=== PATIENT | male | born 1985 | race Caucasian/White ===

== ENCOUNTER 2017-06-19 11:18 | Emergency (ER) | payer SELFPAY ==
[2017-06-19 11:40] VITALS: BP 146/88
--- NOTE | 2017-06-19 12:39 | ER Document Report ---
ED General - General Chief Complaint: Anxiety Stated Complaint: HEART PROBLEMS Time Seen by Provider: 06/19/17 12:15 Mode of Arrival: Ambulatory Information source: Patient Notes: Patient states he has been very stressed lately and today when he took his pulse was in the 130s and his blood pressure is elevated. He states he felt like his heart was beating out of his chest that he was very concerned. Patient states he went to make sure he was not having a heart attack. Patient states the palpitations were constant. They did not radiate. Nothing made them better or worse other than the above stress did make them worse. Patient denies any previous history of cardiac disease. No chronic medical problems. He denies any drug or alcohol use. He did state he used marijuana but that was approximately 72 hours ago. He denies any type of energy drinks. He does smoke daily. Patient states he does not wish to have any lab work done as this will cause him to have increased bills and he currently does not have sufficient funds. TRAVEL OUTSIDE OF THE [place] IN LAST 30 DAYS: No - Related Data Allergies/Adverse Reactions: No Known Allergies Allergy (Verified 06/19/17 11:35) Past Medical History - General Information source: Patient - Social History Smoking Status: Current Every Day Smoker Chew tobacco use (# tins/day): Yes Frequency of alcohol use: Occasional Drug Abuse: Marijuana Family History: Reviewed & Not Pertinent Patient has suicidal ideation: No Patient has homicidal ideation: No Renal/ Medical History: Denies: Hx Peritoneal Dialysis GI Medical History: Reports: Hx Gastroesophageal Reflux Disease Surgical Hx: Negative - Immunizations Immunizations up to date: Yes Hx Diphtheria, Pertussis, Tetanus Vaccination: Yes Review of Systems - Review of Systems Constitutional: denies: Fever Cardiovascular: Chest pain, Palpitations Respiratory: Short of breath. denies: Cough Neurological/Psychological: Anxiety Physical Exam - Vital signs Vitals: Temp Pulse Resp BP Pulse Ox 98.0 F 87 18 146/88 H 98 06/19/17 11:37 06/19/17 11:37 06/19/17 11:37 06/19/17 11:37 06/19/17 11:37 Interpretation: Hypertensive - General General appearance: Appears well, Alert - HEENT Head: Normocephalic, Atraumatic Eyes: Normal Pupils: PERRL - Respiratory Respiratory status: No respiratory distress Chest status: Nontender Breath sounds: Normal Chest palpation: Normal - Cardiovascular Rhythm: Regular Heart sounds: Normal auscultation Murmur: No - Abdominal Inspection: Normal Distension: No distension Bowel sounds: Normal Tenderness: Nontender Organomegaly: No organomegaly - Back Back: Normal, Nontender - Extremities General upper extremity: Normal inspection, Nontender, Normal color, Normal ROM , Normal temperature General lower extremity: Normal inspection, Nontender, Normal color, Normal ROM , Normal temperature, Normal weight bearing. No: Batsheva's sign - Neurological Neuro grossly intact: Yes Cognition: Normal Orientation: AAOx4 [place] Coma Scale Eye Opening: Spontaneous [place] Coma Scale Verbal: Oriented [place] Coma Scale Motor: Obeys Commands [place] Coma Scale Total: 15 Speech: Normal Motor strength normal: LUE, RUE, LLE, RLE Sensory: Normal - Psychological Associated symptoms: Anxious, Restlessness - Skin Skin Temperature: Warm Skin Moisture: Dry Skin Color: Normal Course - Vital Signs Vital signs: Temp Pulse Resp BP Pulse Ox 98.0 F 87 18 146/88 H 98 06/19/17 11:37 06/19/17 11:37 06/19/17 11:37 06/19/17 11:37 06/19/17 11:37 - EKG Interpretation by Ia EKG shows normal: Sinus rhythm Rate: Normal Rhythm: NSR [place]/QRS: No: Right axis deviation, Left axis deviation Discharge - Discharge Clinical Impression: Acute anxiety Condition: Stable Disposition: HOME, SELF-CARE Instructions: Anxiety ([facility]) Additional Instructions: Please follow-up with your primary care physician as soon as possible. Please avoid stimulants such as caffeine tobacco and energy drinks Your blood pressure is elevated today. Please have this rechecked within 1 week by your physician. Forms: Elevated Blood Pressure, Return to Work Referrals: LUBA PEREZ MD [COMMUNITY BASED STAFF] - Follow up as needed
--- NOTE | 2017-06-19 15:28 | EKG REPORT ---
SEVERITY:- NORMAL ECG - SINUS RHYTHM : Confirmed by: Julius Davenport 19-Jun-2017 15:27:29
== END 2017-06-19 13:11 | disposition home or self-care (01) ==
LOC: ER 11:18
DX: F41.9 Anxiety disorder, unspecified (principal); R07.9 Chest pain, unspecified; R00.2 Palpitations; F17.210 Nicotine dependence, cigarettes, uncomplicated
CPT/HCPCS: 93005; 93010; 99283

== ENCOUNTER 2017-10-21 11:45 | Emergency (ER) | payer MEDICAID, OTHER ==
[2017-10-21 12:02] VITALS: BP 134/79
--- NOTE | 2017-10-21 12:26 | ER Document Report ---
ED General - General Chief Complaint: Ear Pain Stated Complaint: EAR PAIN Time Seen by Provider: 10/21/17 12:10 Mode of Arrival: Ambulatory Information source: Patient Notes: 32-year-old male presents with complaints of earache bilateral. Patient notes he has had otitis externa 10 years prior notes that there is swelling of his ear canal. Patient denies any fevers or chills TRAVEL OUTSIDE OF THE [place] IN LAST 30 DAYS: No - HPI Onset: Other Onset/Duration: Persistent, Worse Quality of pain: Achy Severity: Mild Pain Level: 1 Associated symptoms: Earache Exacerbated by: Denies Relieved by: Denies Similar symptoms previously: Yes Recently seen / treated by doctor: No - Related Data Allergies/Adverse Reactions: nickel Allergy (Verified 10/21/17 11:47) Past Medical History - Social History Smoking Status: Never Smoker Cigarette use (# per day): No Chew tobacco use (# tins/day): No Smoking Education Provided: No Family History: Reviewed & Not Pertinent Renal/ Medical History: Denies: Hx Peritoneal Dialysis GI Medical History: Reports: Hx Gastroesophageal Reflux Disease - Immunizations Immunizations up to date: Yes Hx Diphtheria, Pertussis, Tetanus Vaccination: Yes Review of Systems - Review of Systems Notes: REVIEW OF SYSTEMS: CONSTITUTIONAL : Denies fever, chills, or sweats. Denies recent illness. EENT: bilateral ear ache CARDIOVASCULAR: Denies chest pain. Denies palpitations or racing or irregular heart beat. Denies ankle edema. RESPIRATORY: Denies cough, cold, or chest congestion. Denies shortness of breath, difficulty breathing, or wheezing. GASTROINTESTINAL: Denies abdominal pain or distention. Denies nausea, vomiting , or diarrhea. Denies blood in vomitus, stools, or per rectum. Denies black, tarry stools. Denies constipation. GENITOURINARY: Denies difficulty urinating, painful urination, burning, frequency, blood in urine, or discharge. MUSCULOSKELETAL: Denies back or neck pain or stiffness. Denies joint pain or swelling. SKIN: Denies rash, lesions or sores. HEMATOLOGIC : Denies easy bruising or bleeding. LYMPHATIC: Denies swollen, enlarged glands. NEUROLOGICAL: Denies confusion or altered mental status. Denies passing out or loss of consciousness. Denies dizziness or lightheadedness. Denies headache. Denies weakness or paralysis or loss of use of either side. Denies problems with gait or speech. Denies sensory loss, numbness, or tingling. Denies seizures. PSYCHIATRIC: Denies anxiety or stress. Denies depression, suicidal ideation, or homicidal ideation. ALL OTHER SYSTEMS REVIEWED AND NEGATIVE. Dictation was performed using [employer] recognition software PHYSICAL EXAMINATION: GENERAL: Well-appearing, well-nourished and in no acute distress. HEAD: Atraumatic, normocephalic. EYES: Pupils equal round and reactive to light, extraocular movements intact, sclera anicteric, conjunctiva are normal. ENT: Nares patent, oropharynx clear without exudates. Moist mucous membranes. Left TM is pustular canal is patent, right TM is erythematous pustular there is discharge noted there is swelling of the canal no mastoid tenderness on either side NECK: Normal range of motion, supple without lymphadenopathy LUNGS: Breath sounds clear to auscultation bilaterally and equal. No wheezes rales or rhonchi. HEART: Regular rate and rhythm without murmurs ABDOMEN: Soft, nontender, nondistended abdomen. No guarding, no rebound. No masses appreciated. Musculoskeletal: Normal range of motion, no pitting or edema. No cyanosis. NEUROLOGICAL: Cranial nerves grossly intact. Normal speech, normal gait. Normal sensory, motor exams PSYCH: Normal mood, normal affect. SKIN: Warm, Dry, normal turgor, no rashes or lesions noted. Physical Exam - Vital signs Vitals: Temp Pulse BP Pulse Ox 98.7 F 103 H 134/79 H 97 10/21/17 12:01 10/21/17 12:01 10/21/17 12:01 10/21/17 12:01 Course - Re-evaluation Re-evalutation: 10/21/17 12:32 Patient has obvious otitis media and otitis externa, patient will be started on drops and oral antibiotics. Patient given pain control, and ear wick was placed on the right side After performing a Medical Screening Examination, I estimate there is LOW risk for CENTRAL CORD SYNDROME, LUDWIGS ANGINA, PERITONSILLAR ABSCESS, RETROPHARYNGEAL ABSCESS, EPIDURAL MASS LESION, SEVERE SPINAL STENOSIS, ARTERIAL DISSECTION, MENINGITIS, or ACUTE CORONARY SYNDROME, thus I consider the discharge disposition reasonable. I have reevaluated this patient multiple times and no significant life threatening changes are noted. The patient and I have discussed the diagnosis and risks, and we agree with discharging home to follow-up on an outpatient basis with the understanding that symptoms and presentations can change. We also discussed returning to the Emergency Department immediately if new or worsening symptoms occur. We have discussed the symptoms which are most concerning (e.g., saddle anesthesia, urinary or bowel incontinence or retention, changing or worsening pain) that necessitate immediate return. - Vital Signs Vital signs: Temp Pulse Resp BP Pulse Ox 98.7 F 103 H 134/79 H 97 10/21/17 12:10/21/17 12:01 10/21/17 12:10/21/17 12:01 Procedures - Additional Procedures ear wick placement Time performed: 12:33 - It was placed on the right no complication Discharge - Discharge Clinical Impression: Otitis externa Qualifiers: Otitis externa type: swimmer's ear Chronicity: acute Laterality: right Qualified Code(s): H60.331 - Swimmer's ear, right ear Otitis media Qualifiers: Otitis media type: serous Chronicity: acute Laterality: bilateral Recurrence: not specified as recurrent Qualified Code(s): H65.03 - Acute serous otitis media , bilateral Condition: Stable Disposition: HOME, SELF-CARE Instructions: Use of Ear Drops ([facility]), Using Ear Drops with a Wick ([facility]), Otitis Externa ([facility]) Additional Instructions: Follow up with your physician tomorrow for further care or return to the ED IMMEDIATELY if symptoms worsen or new concerns occur. If you cannot afford to follow up with your primary care physician a list of low cost clinics have been provided at the end of your discharge papers as well. Prescriptions: Amoxicillin/Potassium Clav [Augmentin 875-125 Tablet] 1 each PO BID #20 tablet Hydrocodone/Acetaminophen [Moffett 5-325 mg Tablet] 1 tab PO Q6 #14 tablet
[2017-10-21] MEDS ORDERED: CIPROFLOXACIN HCL/DEXAMETH OTIC DROP 7.5 ML AD ONE (12:27)
== END 2017-10-21 12:38 | disposition home or self-care (01) ==
LOC: ER 11:45
DX: H60.331 Swimmer's ear, right ear (principal); H65.03 Acute serous otitis media, bilateral; H92.03 Otalgia, bilateral; Z91.048 Other nonmedicinal substance allergy status
CPT/HCPCS: 99282; J3490

== ENCOUNTER → 2018-07-23 | Outpatient (CLI) | payer SELFPAY ==
[2018-07-23 17:35] LABS: ABSOLUTE BASOPHILS # (AUTO) 0.1 10^3/uL (0.0-0.2); ABSOLUTE EOSINOPHILS # (AUTO) 0.6 10^3/uL (0.0-0.6); ABSOLUTE LYMPHOCYTES (AUTO) 3.7 10^3/uL (0.5-4.7); ABSOLUTE MONOCYTES (AUTO) 0.7 10^3/uL (0.1-1.4); ABSOLUTE NEUT (AUTO) 3.1 10^3/uL (1.7-8.2); BASOPHILS % (AUTO) 0.9 % (0-2); EOSINOPHILS % (AUTO) 7.6 % (0-6); HEMATOCRIT 40.2 % (37.9-51.0); HEMOGLOBIN 13.9 g/dL (13.5-17.0); LYMPHOCYTES % (AUTO) 45.2 % (13-45); MEAN CORPUSCULAR HEMOGLOBIN 33.1 pg (27.0-33.4); MEAN CORPUSCULAR HGB CONC 34.7 g/dL (32.0-36.0); MEAN CORPUSCULAR VOLUME 95 fl (80-97); MONOCYTES % (AUTO) 8.1 % (3-13); PLATELET COUNT 269 10^3/uL (150-450); RED BLOOD COUNT 4.21 10^6/uL (4.35-5.55); RED CELL DISTRIBUTION WIDTH 12.5 % (11.5-14.0); SEGMENTED NEUTROPHILS % (AUTO) 38.2 % (42-78); TOTAL CELLS COUNTED % (AUTO) 100 %; WHITE BLOOD COUNT 8.2 10^3/uL (4.0-10.5)
[2018-07-23 17:56] LABS: ALANINE AMINOTRANSFERASE 19 U/L (21-72); ALBUMIN 4.7 g/dL (3.5-5.0); ALKALINE PHOSPHATASE 40 U/L (38-126); ANION GAP 9 (5-19); ASPARTATE AMINO TRANSFERASE 22 U/L (17-59); BILIRUBIN,DIRECT 0.2 mg/dL (0.0-0.4); BILIRUBIN,TOTAL 0.3 mg/dL (0.2-1.3); BLOOD UREA NITROGEN 13 mg/dL (7-20); CALCIUM 9.3 mg/dL (8.4-10.2); CARBON DIOXIDE 33 mmol/L (22-30); CHLORIDE 99 mmol/L (98-107); GLUCOSE 83 mg/dL (75-110); POTASSIUM 4.3 mmol/L (3.6-5.0); SODIUM 140.6 mmol/L (137-145); TOTAL PROTEIN 7.2 g/dL (6.3-8.2)
--- NOTE | 2018-07-23 20:14 | EKG REPORT ---
SEVERITY:- NORMAL ECG - SINUS RHYTHM : Confirmed by: Julius Davenport 23-Jul-2018 20:13:35
== END ==
LOC: OD 16:35
PROVIDERS: ATTEND Nurse Practitioner Family
DX: F33.1 Major depressive disorder, recurrent, moderate (principal); F41.1 Generalized anxiety disorder; F41.9 Anxiety disorder, unspecified; F90.2 Attention-deficit hyperactivity disorder, combined type
CPT/HCPCS: 36415; 80053; 84443; 85025; 93005; 93010

== ENCOUNTER 2019-04-02 21:36 | Emergency (ER) | payer SELFPAY ==
[2019-04-02 21:48] VITALS: BP 138/81
[2019-04-03] MEDS ORDERED: NEOMY SULF/POLYMYX B SULF/HC OTIC SUSP 10 ML AU ONE (03:39)
--- NOTE | 2019-04-03 03:42 | ER Document Report ---
ED General - General Chief Complaint: Ear Pain Stated Complaint: POSSIBLE RIGHT EAR INFECTION Time Seen by Provider: 04/03/19 03:32 Primary Care Provider: SONG ARIAS FNP-C [Primary Care Provider] - Follow up as needed TRAVEL OUTSIDE OF THE [place] IN LAST 30 DAYS: No - Related Data Allergies/Adverse Reactions: nickel Allergy (Verified 10/21/17 11:47) Past Medical History - Social History Smoking Status: Former Smoker Family History: Reviewed & Not Pertinent Patient has suicidal ideation: No Patient has homicidal ideation: No Renal/ Medical History: Denies: Hx Peritoneal Dialysis GI Medical History: Reports: Hx Gastroesophageal Reflux Disease - Immunizations Immunizations up to date: Yes Hx Diphtheria, Pertussis, Tetanus Vaccination: Yes Physical Exam - Vital signs Vitals: Temp Pulse Resp BP Pulse Ox 98.3 F 106 H 18 138/81 H 95 04/02/19 21:47 04/02/19 21:47 04/02/19 21:47 04/02/19 21:47 04/02/19 21:47 Course - Vital Signs Vital signs: Temp Pulse Resp BP Pulse Ox 98.3 F 106 H 18 138/81 H 95 04/02/19 21:47 04/02/19 21:47 04/02/19 21:47 04/02/19 21:47 04/02/19 21:47 Discharge - Discharge Clinical Impression: Otitis externa Qualifiers: Otitis externa type: swimmer's ear Chronicity: acute Laterality: right Qualified Code(s): H60.331 - Swimmer's ear, right ear Condition: Stable Disposition: HOME, SELF-CARE Instructions: Otitis Externa ([facility]) Prescriptions: Neomy Sulf/Polymyx B Sulf/Hc [Cortisporin Otic Susp] 4 drop BTH_EAR Q4 #1 bottle Referrals: SONG ARIAS FNP-C [Primary Care Provider] - Follow up as needed
--- NOTE | 2019-04-03 03:46 | ER Document Report ---
ED General - General Chief Complaint: Ear Pain Stated Complaint: POSSIBLE RIGHT EAR INFECTION Time Seen by Provider: 04/03/19 03:32 Primary Care Provider: SONG ARIAS FNP-C [Primary Care Provider] - Follow up as needed TRAVEL OUTSIDE OF THE [place] IN LAST 30 DAYS: No - HPI Notes: 33-year-old male presents with right greater than left ear pain. Patient describes a day and 1/2 to 2 days of gradually increasing ear pain. Some debris and drainage in his right ear. "This happened last year at this time". States he has been swimming recently. Burning throbbing, nonradiating. No fever. No runny nose or congestion, no significant cough, no fever. No other modifying factors, no other associated symptoms, no other provocative or palliative factors. Moderate intensity. - Related Data Allergies/Adverse Reactions: nickel Allergy (Verified 10/21/17 11:47) Past Medical History - Social History Smoking Status: Former Smoker Family History: Reviewed & Not Pertinent Patient has suicidal ideation: No Patient has homicidal ideation: No - Medical History Notes: No pertinent history Renal/ Medical History: Denies: Hx Peritoneal Dialysis GI Medical History: Reports: Hx Gastroesophageal Reflux Disease - Immunizations Immunizations up to date: Yes Hx Diphtheria, Pertussis, Tetanus Vaccination: Yes Review of Systems - Review of Systems Notes: Review of systems as in history of present illness, otherwise no significant headache, chest pain, abdominal pain. Physical Exam - Vital signs Vitals: Temp Pulse Resp BP Pulse Ox 98.3 F 106 H 18 138/81 H 95 04/02/19 21:47 04/02/19 21:47 04/02/19 21:47 04/02/19 21:47 04/02/19 21:47 - Notes Notes: General: Well devloped, no acute distress. HEENT: Normocephalic, atraumatic. Pupils equal round reactive to light. Mucosa moist. No JVD. Patient is uncooperative with your exam however the left ear of his some minimal if any erythema. Right ear has external canal swelling, erythema debris and mild drainage. Chest: No trauma, normal excursion. Respiratory: Good air exchange, normal excursion. Cardiac: Regular rhythm Abdomen: Soft, benign. Nondistended. Back: No asymmetry or gross abnormality. Motor: Grossly normal power and tone. Neurologic: Alert, nonfocal. Vascular: Well perfused Skin: No petechiae or purpura Course - Re-evaluation Re-evalutation: 04/03/19 03:44 Well-appearing male with likely otitis externa. The patient is uncooperative with exam but does have cardinal features to support this. I recommended earwick instillation of antibiotic eardrops. He is evidently refused to have an ear wick. I explained the potential complications of failure therapy but he declines again. I then discussed outpatient follow-up and causation. He had asked that we were going to use for pain and I indicated I would use naproxen. Patient became irate at that time and stated that naproxen does not work. He told me to check out when he was here last year and that they gave him stronger pain medicine. I offered a single dose of tramadol in the ED to get him ahead of his pain but he again became irate and declined. Patient then demanded a second opinion and stated he was not "fucking leaving" until he got a second opinion or something stronger for pain. I terminated the encounter at that point. - Vital Signs Vital signs: Temp Pulse Resp BP Pulse Ox 98.3 F 106 H 18 138/81 H 95 04/02/19 21:47 04/02/19 21:47 04/02/19 21:47 04/02/19 21:47 04/02/19 21:47 Discharge - Discharge Clinical Impression: Otitis externa Qualifiers: Otitis externa type: swimmer's ear Chronicity: acute Laterality: right Qualified Code(s): H60.331 - Swimmer's ear, right ear Condition: Stable Disposition: HOME, SELF-CARE Instructions: Otitis Externa ([facility]) Prescriptions: Neomy Sulf/Polymyx B Sulf/Hc [Cortisporin Otic Susp] 4 drop BTH_EAR Q4 #1 bottle Referrals: SONG ARIAS FNP-C [Primary Care Provider] - Follow up as needed
== END 2019-04-03 03:55 | disposition home or self-care (01) ==
LOC: ER 21:36
DX: H60.331 Swimmer's ear, right ear (principal)
CPT/HCPCS: 99282

== ENCOUNTER 2020-03-04 15:21 | Emergency (ER) | payer BC ==
[2020-03-04 17:09] VITALS: BP 137/86
== END 2020-03-04 17:45 | disposition left against medical advice (07) ==
LOC: ER 15:21
DX: Z53.21 Procedure and treatment not carried out due to patient leaving prior to being seen by health care provider (principal)

== ENCOUNTER 2020-06-13 08:39 | Emergency (ER) | payer SELFPAY ==
[2020-06-13] MEDS ORDERED: LIDOCAINE 2% VISCOUS SOLN 15 ML UDCUP PO ONE (10:51)
[2020-06-13] MEDS ORDERED: MAG HYDROX/AL HYDROX/SIMETH SUSP 30 ML UDCUP PO ONE (10:51)
[2020-06-13] MEDS ORDERED: ONDANSETRON 4 MG TAB.RAPDIS PO ONE (10:51)
[2020-06-13] MEDS ORDERED: NORMAL SALINE 1000 ML 1,000 ML IV ONE ×2 (10:51→11:51)
--- NOTE | 2020-06-13 10:53 | ER Document Report ---
ED Medical Screen (RME) - General Chief Complaint: Abdominal Pain Stated Complaint: ABDOMINAL PAIN Time Seen by Provider: 06/13/20 10:48 Primary Care Provider: SONG ARIAS FNP-C [Primary Care Provider] - Follow up as needed Notes: Patient presents with epigastric abdominal pain, patient states pain has been there for 4 days. Patient reports numerous episodes of nausea and vomiting and inability to tolerate oral fluids. Patient denies any fever. Patient has a history of acid reflux. Patient states he only typically drinks about once a month. I have greeted and performed a rapid initial assessment of this patient. A comprehensive ED assessment and evaluation of the patient, analysis of test results and completion of the medical decision making process will be conducted by additional ED providers. TRAVEL OUTSIDE OF THE [place] IN LAST 30 DAYS: No - Related Data Allergies/Adverse Reactions: nickel Allergy (Verified 10/21/17 11:47) Past Medical History - Social History Chew tobacco use (# tins/day): No Frequency of alcohol use: Occasional Drug Abuse: Marijuana Renal/ Medical History: Denies: Hx Peritoneal Dialysis GI Medical History: Reports: Hx Gastroesophageal Reflux Disease - Immunizations Immunizations up to date: Yes Hx Diphtheria, Pertussis, Tetanus Vaccination: Yes Physical Exam - Vital signs Vitals: Temp Pulse Resp BP Pulse Ox 98.1 F 86 16 124/73 99 06/13/20 09:17 06/13/20 09:17 06/13/20 09:17 06/13/20 09:17 06/13/20 09:17 - Abdominal Tenderness: Tender - Epigastric Course - Vital Signs Vital signs: Temp Pulse Resp BP Pulse Ox 98.1 F 86 16 124/73 99 06/13/20 09:17 06/13/20 09:17 06/13/20 09:17 06/13/20 09:17 06/13/20 09:17 Doctor's Discharge - Discharge Referrals: SONG ARIAS FNP-C [Primary Care Provider] - Follow up as needed
[2020-06-13 11:07] LABS: ABSOLUTE LYMPHOCYTES (AUTO) 2.2 10^3/uL (0.5-4.7); ABSOLUTE MONOCYTES (AUTO) 0.5 10^3/uL (0.1-1.4); ABSOLUTE NEUT (AUTO) 8.7 10^3/uL (1.7-8.2); BASOPHILS % (AUTO) 0.4 % (0-2); EOSINOPHILS % (AUTO) 0.4 % (0-6); HEMATOCRIT 42.4 % (37.9-51.0); HEMOGLOBIN 14.6 g/dL (13.5-17.0); LYMPHOCYTES % (AUTO) 19.2 % (13-45); MEAN CORPUSCULAR HEMOGLOBIN 32.6 pg (27.0-33.4); MEAN CORPUSCULAR HGB CONC 34.4 g/dL (32.0-36.0); MEAN CORPUSCULAR VOLUME 95 fl (80-97); MONOCYTES % (AUTO) 4.7 % (3-13); PLATELET COUNT 308 10^3/uL (150-450); RED BLOOD COUNT 4.48 10^6/uL (4.35-5.55); SEGMENTED NEUTROPHILS % (AUTO) 75.3 % (42-78); TOTAL CELLS COUNTED % (AUTO) 100 %; WHITE BLOOD COUNT 11.5 10^3/uL (4.0-10.5)
[2020-06-13 11:24] LABS: ALBUMIN 4.8 g/dL (3.5-5.0); ALKALINE PHOSPHATASE 49 U/L (38-126); ANION GAP 13 (5-19); ASPARTATE AMINO TRANSFERASE 22 U/L (17-59); BILIRUBIN,DIRECT 0.3 mg/dL (0.0-0.4); BILIRUBIN,TOTAL 0.6 mg/dL (0.2-1.3); BLOOD UREA NITROGEN 9 mg/dL (7-20); CALCIUM 10.1 mg/dL (8.4-10.2); CARBON DIOXIDE 28 mmol/L (22-30); CHLORIDE 99 mmol/L (98-107); GLUCOSE 113 mg/dL (75-110); POTASSIUM 3.9 mmol/L (3.6-5.0); TOTAL PROTEIN 7.3 g/dL (6.3-8.2)
[2020-06-13] MEDS ORDERED: ONDANSETRON HCL INJ/PF 4 MG/2 ML SDV IV ONE (11:51)
[2020-06-13] MEDS ORDERED: MORPHINE SULFATE 10 MG/ML INJ IV ONE (11:51)
--- NOTE | 2020-06-13 12:23 | RADIOLOGY REPORT (SQ) ---
EXAM DESCRIPTION: U/S ABDOMEN LIMITED W/O DOP IMAGES COMPLETED DATE/TIME: 06/13/2020 12:09 pm REASON FOR STUDY: upper abd pain COMPARISON: None. TECHNIQUE: Dynamic and static grayscale images acquired of the abdomen and recorded on PACS. Additio nal selected color Doppler and spectral images recorded. LIMITATIONS: None. FINDINGS: PANCREAS: No masses. Visualized pancreatic duct normal caliber. LIVER: No masses. Echotexture normal. LIVER VASCULATURE: Normal directional flow of the main portal vein and hepatic veins. GALLBLADDER: No stones. Normal wall thickness. No pericholecystic fluid. ULTRASOUND-DETECTED DENSON'S SIGN: Negative. INTRAHEPATIC DUCTS AND COMMON DUCT: CBD and intrahepatic ducts normal caliber. No filling defects. INFERIOR VENA CAVA: Normal flow. AORTA: No aneurysm. RIGHT KIDNEY: Normal size. Normal echogenicity. No solid or suspicious masses. No hydronephrosis. No calcifications. PERITONEAL AND RIGHT PLEURAL SPACE: No ascites or effusions. OTHER: No other significant findings. IMPRESSION: NORMAL RIGHT UPPER QUADRANT ULTRASOUND. TECHNICAL DOCUMENTATION: JOB ID: [id number] 2010 [employer]- All Rights Reserved Reading location - IP/workstation name: [email or web address]
[2020-06-13] MEDS ORDERED: METOCLOPRAMIDE HCL INJ/PF 10 MG/2 ML SDV IV ONE (13:53)
--- NOTE | 2020-06-13 15:08 | RADIOLOGY REPORT (SQ) ---
EXAM DESCRIPTION: CT ABD/PELVIS WITH IV ORAL IMAGES COMPLETED DATE/TIME: 06/13/2020 2:35 pm REASON FOR STUDY: abd painruq/rlq n/v COMPARISON: None. TECHNIQUE: CT scan of the abdomen and pelvis performed with intravenous and oral contrast using thalia mirna scanning technique with dynamic intravenous contrast injection. Images reviewed with lung, soft t issue, and bone windows. Reconstructed coronal and sagittal MPR images reviewed. Delayed images for e valuation of the urinary system also acquired. All images stored on PACS. All CT scanners at this facility use dose modulation, iterative reconstruction, and/or weight based d osing when appropriate to reduce radiation dose to as low as reasonably achievable (ALARA). [facility]: Dose Right [facility]: CareDose [facility]: Dose Right [facility]: Teradose 4D [facility]: iRewind CONTRAST TYPE AND DOSE: contrast/concentration: Isovue 350.00 mmol/ml; Total Contrast Delivered: 89. 9 ml; Total Saline Delivered: 56.0 ml RENAL FUNCTION: BUN 9; creatinine 0.67 RADIATION DOSE: CT Rad equipment meets quality standard of care and radiation dose reduction techniq ues were employed. CTDIvol: 5.6 - 7.7 mGy. DLP: 670 mGy-cm.. LIMITATIONS: None. FINDINGS: LOWER CHEST: No significant findings. No nodules or infiltrates. LIVER: Normal size. No masses. No dilated ducts. SPLEEN: Normal size. No focal lesions. PANCREAS: No masses. No significant calcifications. No adjacent inflammation or peripancreatic fluid collections. Pancreatic duct not dilated. GALLBLADDER: No identified stones by CT criteria. No inflammatory changes to suggest cholecystitis. ADRENAL GLANDS: No significant masses or asymmetry. RIGHT KIDNEY AND URETER: No solid masses. No significant calcification. No hydronephrosis or hydroure ter. LEFT KIDNEY AND URETER: No solid masses. No significant calcification. No hydronephrosis or hydrouret er. AORTA AND VESSELS: No aneurysm. No dissection. Renal arteries, SMA, celiac without stenosis. RETROPERITONEUM: No retroperitoneal adenopathy, hemorrhage or masses. BOWEL AND PERITONEAL CAVITY: No obstruction. No visualized masses. No free fluid. No inflammatory ch anges or thickening of bowel wall. Moderate colonic stool burden. APPENDIX: Normal. PELVIS: No significant masses. Normal bladder. No free fluid. ABDOMINAL WALL: No masses. No hernias. Surgical tacks are present in the lower anterior abdominal wa ll. BONES: No significant or acute findings. OTHER: No other significant finding. IMPRESSION: Normal appendix. No acute inflammatory changes in the abdomen or pelvis. TECHNICAL DOCUMENTATION: JOB ID: [id number] Quality ID # [id number]: Final reports with documentation of one or more dose reduction techniques (e.g., Au tomated exposure control, adjustment of the mA and/or kV according to patient size, use of iterative reconstruction technique) 2010 [employer]- All Rights Reserved Reading location - IP/workstation name: [email or web address]
--- NOTE | 2020-06-13 17:21 | ER Document Report ---
Entered by MILES VILLALOBOS SCRIBE 06/13/20 1103 Acting as scribe for:PAPI JUAREZ MD ED GI/ - General Chief Complaint: Abdominal Pain Stated Complaint: ABDOMINAL PAIN Time Seen by Provider: 06/13/20 10:48 Primary Care Provider: SONG ARIAS FNP-C [NURSE PRACTITIONER] - Follow up as needed Mode of Arrival: Ambulatory Information source: Patient Notes: This 34-year-old male patient presents to the emergency department today with c omplaints of upper abdominal pain with vomiting. Patient states that he has not eaten since Sunday night because that is when his vomiting began. Patient states his pain is relieved if he vomits but then it begins again shortly after vomiting. Patient states that if he does not drink anything his vomit is yellow in color and if he does drink something it is what ever color the drink he consu med was. He has not had a bowel movement since the vomiting began which is unusual for him. Patient denies any blood in the vomit. TRAVEL OUTSIDE OF THE [place] IN LAST 30 DAYS: No - Related Data Allergies/Adverse Reactions: nickel Allergy (Verified 10/21/17 11:47) Past Medical History - General Information source: Patient - Social History Smoking Status: Never Smoker Cigarette use (# per day): No Chew tobacco use (# tins/day): No Frequency of alcohol use: Occasional Drug Abuse: Marijuana Lives with: Family Family History: Reviewed & Not Pertinent GI Medical History: Reports: Hx Gastroesophageal Reflux Disease Surgical Hx: Negative - Immunizations Immunizations up to date: Yes Hx Diphtheria, Pertussis, Tetanus Vaccination: Yes Review of Systems - Review of Systems Constitutional: No symptoms reported EENT: No symptoms reported Cardiovascular: No symptoms reported Respiratory: No symptoms reported Gastrointestinal: See HPI, Abdominal pain, Nausea, Vomiting Genitourinary: No symptoms reported Male Genitourinary: No symptoms reported Musculoskeletal: No symptoms reported Skin: No symptoms reported Hematologic/Lymphatic: No symptoms reported Neurological/Psychological: No symptoms reported -: Yes All other systems reviewed and negative Physical Exam - Vital signs Vitals: Temp Pulse Resp BP Pulse Ox 98.1 F 86 16 124/73 99 06/13/20 09:17 06/13/20 09:17 06/13/20 09:17 06/13/20 09:17 06/13/20 09:17 Interpretation: Normal - General General appearance: Alert In distress: Mild - appears uncomfortable - HEENT Head: Normocephalic, Atraumatic Eyes: Normal Pupils: PERRL - Respiratory Respiratory status: No respiratory distress Chest status: Nontender Breath sounds: Normal Chest palpation: Normal - Cardiovascular Rhythm: Regular Heart sounds: Normal auscultation Murmur: No - Abdominal Distension: No distension Bowel sounds: Normal Tenderness: Tender - RUQ, Epigastric, and RLQ, Rebound - RLQ and minimal LLQ Organomegaly: No organomegaly - Back Back: Normal, Nontender - Extremities General upper extremity: Normal inspection, Nontender. No: Edema General lower extremity: Normal inspection, Nontender. No: Edema - Neurological Neuro grossly intact: Yes Cognition: Normal Orientation: AAOx4 Scotts Coma Scale Eye Opening: Spontaneous Ely Coma Scale Verbal: Oriented Scotts Coma Scale Motor: Obeys Commands Ely Coma Scale Total: 15 Speech: Normal - Psychological Associated symptoms: Normal affect, Normal mood - Skin Skin Temperature: Warm Skin Moisture: Dry Skin Color: Normal Course - Re-evaluation Re-evalutation: 06/13/20 17:06 Patient ambulatory in room , and pain level is decreased at this time. 06/13/20 17:12 Discussed with patient that most likely he has a viral syndrome with some intractable nausea and vomiting and abdominal pain with spasm. I did suggest the patient perhaps we should check him for COVID-19 inasmuch as we end this pandemic and sometimes a GI tract with nausea vomiting diarrhea can be part of the syndrome. Patient agreed to be tested. - Vital Signs Vital signs: Temp Pulse Resp BP Pulse Ox 98.1 F 90 16 124/73 99 06/13/20 09:17 06/13/20 15:01 06/13/20 09:17 06/13/20 09:17 06/13/20 09:17 06/13/20 17:10 Vital signs stable - Laboratory Result Diagrams: 06/13/20 10:38 06/13/20 10:38 Laboratory results interpreted by me: 06/13/20 06/13/20 10:38 10:38 WBC 11.5 H Absolute Neuts (auto) 8.7 H Glucose 113 H Laboratories show white count 11.5 glucose 113, otherwise insignificant. 06/13/20 17:10 - Diagnostic Test Radiology reviewed: Image reviewed, Reports reviewed Radiology results interpreted by me: 06/13/20 17:11 Abdomen/Pelvis CT 06/13/20 00:00 IMPRESSION: Normal appendix. No acute inflammatory changes in the abdomen or pelvis. Abdomen Ultrasound 06/13/20 10:53 IMPRESSION: NORMAL RIGHT UPPER QUADRANT ULTRASOUND. CT scan of abdomen and pelvis with no acute process. Normal appendix ultrasound right upper quadrant showed no acute cholecystitis or cholelithiasis or any abnormalities in the liver or gallbladder biliary system. Discharge - Discharge Clinical Impression: Nausea & vomiting, Abdominal pain, Suspected COVID-19 virus infection Condition: Stable Disposition: HOME, SELF-CARE Instructions: Abdominal Pain ([facility]), Antinausea Medication ([facility]), Antispasmodics ([facility]), Viral Syndrome ([facility]) Prescriptions: Dicyclomine HCl [Bentyl 20 mg Tablet] 20 mg PO QID PRN 5 Days #20 tablet PRN Reason: Abdominal Cramping Ondansetron [Zofran Odt 4 mg Tablet] 1 - 2 tab PO Q6H PRN #20 tab.rapdis PRN Reason: Referrals: SONG ARIAS, [facility] [employer] OPERATOR-C [NURSE PRACTITIONER] - Follow up as needed I personally performed the services described in the documentation, reviewed and edited the documentation which was dictated to the scribe in my presence, and it accurately records my words and actions.
[2020-06-13 17:23] LABS: APPEARANCE,URINE CLEAR; BILIRUBIN,URINE NEGATIVE (NEGATIVE); COLOR,URINE STRAW; GLUCOSE, URINE NEGATIVE (NEGATIVE); KETONES,URINE 20 mg/dL (NEGATIVE); LEUKOCYTE ESTERASE,URINE TRACE (NEGATIVE); NITRITE,URINE NEGATIVE (NEGATIVE); PROTEIN,URINE NEGATIVE (NEGATIVE); URINE SPECIFIC GRAVITY 1.046; UROBILINOGEN,URINE NEGATIVE mg/dL (<2.0)
--- NOTE | 2020-06-13 20:19 | EKG REPORT ---
SEVERITY:- NORMAL ECG - SINUS BRADYCARDIA : Confirmed by: Marko Sanford MD 13-Jun-2020 20:18:53
== END 2020-06-13 17:24 | disposition home or self-care (01) ==
LOC: ER 08:39
DX: R10.9 Unspecified abdominal pain (principal); R10.10 Upper abdominal pain, unspecified; R11.2 Nausea with vomiting, unspecified; Z20.828 Contact with and (suspected) exposure to other viral communicable diseases
CPT/HCPCS: 93005; 99285; 96361; 96374; 96375; 36415; 83605; 83690; 85025; 80053; 81001; 76705; 74177; 93010; S0119; J3490; J2765; J2270; J2405; J7030